=== PATIENT | male | born 1955 | race Caucasian/White ===

== ENCOUNTER → 2017-06-21 | Outpatient (CLI) | payer BC ==
[2015-02-05 09:30] VITALS: BP 154/95
--- NOTE | 2017-06-21 11:27 | KCIC ---
Renal ultrasound History:Idiopathic hematuria. Technique: Sonographic imaging of both kidneys. Findings: Aorta: Small infrarenal abdominal aortic aneurysm, measures 4.0 cm AP diameter. Proximal aorta is obscured by bowel gas. Inferior vena cava:Appears patent Right kidney measures 12.8 cm. No evidence of hydronephrosis, shadowing calculus or renal lesion. Left kidney measures 12.0 cm length echogenic reflector measuring about 6 mm identified at the midpole, compatible with a calcification or a nonobstructive calculus. No hydronephrosis.. Urinary bladder: Limited visualization. Patient had voided prior to the scan. Prostate gland is enlarged with an estimated volume of 124 cc. Impression: 1. Small infrarenal abdominal aortic aneurysm measuring 4.0 cm AP diameter. Recommend follow-up ultrasound of the aorta in at least 12 months. Findings discussed by telephone with Cinthya Duarte at the time of this report. 2. Nonobstructive left renal calculus. 3. Prostatomegaly. Electronically signed by: Geraldo Wayne MD (06/21/2017 11:24 AM) [facility]
== END | disposition home or self-care (01) ==
LOC: KCIC US 08:17
PROVIDERS: ATTEND Nurse Practitioner Family
DX: I71.4 Abdominal aortic aneurysm, without rupture (principal); N20.0 Calculus of kidney; N40.0 Benign prostatic hyperplasia without lower urinary tract symptoms; N02.9 Recurrent and persistent hematuria with unspecified morphologic changes
CPT/HCPCS: 76770

== ENCOUNTER → 2019-05-13 | Outpatient (CLI) | payer BC ==
[2015-02-05 09:30] VITALS: BP 154/95
[~2019-05-13] MED LIST: REGADENOSON 0.4 MG/5 ML DISP.SYRIN. IV ONE
--- NOTE | 2019-05-13 11:27 | RAD ---
MR#: [id number] Date of Study: 05/13/2019 Ordering Physician: WILSON SHORT, Referring Physician: WILSON SHORT, Tech: Yvon Scruggs MBA, RDMS, RVT, RDCS, RTR APPROVED REPORT Patient Location : OUT-PATIENT Indications Varicose Veins Greater Saphenous Veins (GSV) Significant venous relux noted in the RIGHT GSV at the following levels : Proximal Thigh, Mid Thigh, Distal Thigh, Proximal Calf, Mid Calf, Distal Calf Significant venous relux noted in the LEFT GSV at the following levels : Superficial Femoral Junction , Proximal Thigh, Mid Thigh, Distal Thigh Lesser Saphenous Veins (LSV) Significant venous reflux is noted in the Bilateral LSV. Findings Bilateral pires scale images of the greater and lesser saphenous veins are grossly within normal limit s. The left great saphenous vein below the knee appears to been previously ablated. On the left the great saphenous vein measures approximately 5.6 mm in greatest dimension with a maxim um reflux time of 3.2 seconds. The right great saphenous vein has a maximum dimension of 3.9 mm with a reflux time of 3.4 seconds. The left great saphenous vein measures approximately 2 mm with a maximum reflux time of 1.8 seconds. The right great saphenous vein measures approximately 3 mm with a maximum reflux time of 2.9 seconds. Critical Notification Critical Value: No <Conclusion> Positive for reflux in the bilateral greater and lesser saphenous veins as noted above. Signed by : David Pichardo, Electronically Approved : 05/13/2019 11:26:59
--- NOTE | 2019-05-13 11:52 | RAD ---
MR#: [id number] Date of Study: 05/13/2019 Ordering Physician: WILSON SHORT, Referring Physician: WILSON SHORT, Tech: Yvon Scruggs MBA, RDMS, RVT, RDCS, RTR APPROVED REPORT Patient Location: OUT-PATIENT Indications Rest Pain:Bilaterally VELOCITY AND DOPPLER WAVEFORM ANALYSIS RIGHT cm/secWaveformSeverity LEFT cm/secWaveform Severity dCFA 57.0BiphasicdCFA 90.0Biphasic Prof Fem Art. 46.0BiphasicProf Fem Art. 69.0Biphasic Fem Art Prox. 159.0BiphasicFem Art Prox. 31.0Biphasic Fem Art Mid. 98.0BiphasicFem Art Mid. Occluded Fem Art Dist. 124.0BiphasicFem Art Dist. Occluded Pop Art(Fossa) 50.0MonophasicPop Art(AK) 20.0Monophasic GOLF BALL MOLDER Prox. 78.0MonophasicPTA Prox. 28.0Monophasic GOLF BALL MOLDER Dist. 62.0MonophasicPTA Dist. 16.0Monophasic Per Art Mid. 36.0MonophasicPer Art Mid. ROBERTO Prox. 129.0TriphasicATA Prox. 36.0Monophasic DPA 41MonophasicDPA 26Monophasic Image Findings Grayscale images of the bilateral lower extremity arterial vessels demonstrate moderate diffuse plaqu e. On the right spectral waveforms of the common femoral, superficial femoral artery suggesting a mild t o moderate disease of approximately less than 50%. The posterior tibial, peroneal and anterior tibial vessels appear to be patent without any significant restriction to flow. There is likely moderate di ffuse disease involving the below-knee vessels. On the left there are normal velocities in the common femoral artery. The mid to distal SFA is occlud ed. Distally there is some reconstitution with collateral flow at the popliteal segment. There is 2 v essel runoff below the knee with no evidence of visualization a flow in the peroneal artery. Monophas ic waveforms with diminished velocities are consistent with more proximal obstruction in the superfic ial femoral artery. Critical Notification Critical Value: No <Conclusion> 1. Probable moderate diffuse disease involving the right lower extremity 2. Occluded left mid to distal superficial femoral artery with diminished flow below the knee. Signed by : David Pichadro, Electronically Approved : 05/13/2019 11:52:33
--- NOTE | 2019-05-13 11:55 | CARD ---
MR#: [id number] Date of Study: 05/13/2019 Ordering Physician: WILSON SHORT, Referring Physician: WILSON SHORT, Tech: Roseanne Tamomar APPROVED REPORT EXAM: Two-dimensional and M-mode echocardiogram with Doppler and color Doppler. Other Information Quality : AverageHR: 67bpm INDICATION Cardiac Disease: CAD Surgery/Intervention CABG: Date: 2011 RISK FACTORS Hypertension Smoking 2D DIMENSIONS RVDd3.6 (2.9-3.5cm)Left Atrium(2D)3.0 (1.6-4.0cm) IVSd1.1 (0.7-1.1cm)Aortic Root(2D)3.7 (2.0-3.7cm) LVDd4.9 (3.9-5.9cm)LVOT Diameter2.1 (1.8-2.4cm) PWd1.3 (0.7-1.1cm)LVDs3.4 (2.5-4.0cm) FS (%) 27.8 %SV54.3 ml LVEF(%)53.9 (>50%) Aortic Valve AoV Peak Bryan.121.2cm/sAoV VTI22.6cm AO Peak GR.5.9mmHgLVOT Peak Bryan.98.6cm/s LVOT VTI 18.64cmAO Mean GR.4mmHg MARII (VMAX)2.80na1LTT (VTI)2.97cm2 AI P 1/2 Hpph207gr Mitral Valve MV E Vhmeffyh59.7cm/sMV DECEL QUTL098vb MV A Tuitwmdd36.5cm/sMV GFP26sp E/A Ratio0.9MVA (PHT)3.52cm2 TDI E/Lateral E'5.0E/Medial E'5.9 Pulmonary Valve PV Peak Gxdgbbwy863.3cm/sPV Peak Grad.6mmHg Tricuspid Valve TR P. Tsuxbqsb070oh/sRAP PWXVBWFY0ctBt TR Peak Gr.83frGlBSCK05tdRj Pulmonary Vein S1 Gnqvgrid46.7cm/sD2 Qodmrqdj38.4cm/s PVa nnjqgeqd506zzru LEFT VENTRICLE The left ventricle is normal size. There is mild to moderate concentric left ventricular hypertrophy. The left ventricular systolic function is normal and the ejection fraction is within normal range. T he Ejection Fraction is 50-55%. There is normal LV segmental wall motion. Transmitral Doppler flow pa ttern is Grade I-abnormal relaxation pattern. RIGHT VENTRICLE The right ventricle is normal size. There is normal right ventricular wall thickness. The right ventr icular systolic function is normal. ATRIA The left atrium size is normal. The right atrium size is normal. The interatrial septum is intact wit h no evidence for an atrial septal defect or patent foramen ovale as noted on 2-D or Doppler imaging. AORTIC VALVE The aortic valve is normal in structure and function. Doppler and Color Flow revealed trace aortic re gurgitation. There is no significant aortic valvular stenosis. MITRAL VALVE The mitral valve is normal in structure and function. There is no evidence of mitral valve prolapse. There is no mitral valve stenosis. Doppler and Color Flow revealed no mitral valve regurgitation note d. TRICUSPID VALVE The tricuspid valve is normal in structure and function. Doppler and Color Flow revealed no tricuspid valve regurgitation noted. There is no tricuspid valve stenosis. PULMONIC VALVE The pulmonic valve is not well visualized. Doppler and Color Flow revealed no pulmonic valvular regur gitation. GREAT VESSELS The aortic root is normal in size. The IVC was not visualized. PERICARDIAL EFFUSION There is no pleural effusion. There is no evidence of significant pericardial effusion. Critical Notification Critical Value: No <Conclusion> The left ventricular systolic function is normal and the ejection fraction is within normal range. Th e Ejection Fraction is 50-55%. There is normal LV segmental wall motion. Signed by : David Pichardo, Electronically Approved : 05/13/2019 11:55:25
--- NOTE | 2019-05-13 12:40 | RAD ---
MR#: [id number] Date of Study: 05/13/2019 Ordering Physician: WILSON SHORT, Referring Physician: ATUL LARIOS Tech: JESUS Rocha APPROVED REPORT Test Type: Pharmacological Stress Nurse/Tech: Nay Sun R.N. Test Indications: CAD Cardiac History: Hypertension, CAD, triple bypass, former smoker Medications: See Electronic Medical Record Medical History: See Electronic Medical Record Resting ECG: NSR Resting Heart Rate: 68 bpm Resting Blood Pressure: 138/78mmHg Pretest Chest Pain: No chest pain Nurse/Tech Notes S1S2, lungs sound clear Consent: The procedure was explained to the patient in lay terms. Informed consent was witnessed. Jamaal eout was entered into [employer]. History and Stress Test performed by Nay Sun R.N. Pharm. Details Pharmacologic stress testing was performed using 0.4mg per 5ml of regadenoson given intravenously ove r 7-10 seconds. Stress Symptoms Nausea, vomiting POST EXERCISE Reason for Termination: Infusion complete Target HR: 132 Max HR: 141 bpm Max Blood Pressure: 174/95mmHg Blood Pressure response to exercise: Normal blood pressure response during stress. Chest Pain: No. Arrhythmia: No. ST Change: No. INTERPRETATION Stress EKG Conclusion: Baseline EKG showed sinus rhythm. No ischemic changes at peak stress. No arr hythmias. Imaging Protocol IMAGE PROTOCOL: Rest Tc-99m/stress Tc-99m 1 day Rest: Stress: Viability: Radiopharm.Tc99m WgnfpdqllHi59x Sestamibi Zeii65iLm 33mCi Duration 15min. 10min. Img Date 05/13/2019 05/13/2019 Inj-Img Dvih65gav. 60min. Rest Admin Site:IV - Right AntecubitalAdministrator:RT Dinh (R)(N) Stress Admin Site: IV - Right AntecubitalAdministrator: RT Dinh (R)(N) STRESS DATA End Diast. Vol.109.0mlAv. Heart Rate75.0bpm End Syst. Vol.38.0mlCO Index BSA0.0L/min Myocardial Exth455.0gEject. Sezunuzy92.0% Stress Rates Pk. Fill Rate3.02EDV/secLVtime Pk. Fill 102.75msec Pk. Empty Rate4.52ESV/secLVtime Pk. Ruppy445.69msec 1/3 Pk. Fill2.00EDV/sec Stress Scores Regional WT1.00Summed WT7.00 Regional WM0.00Summed WM5.00 LV Perfusion Scintigraphic images showed fixed inferior wall defect most probably diaphragmatic attenuation artifa ct based on normal wall motion. No other fixed or reversible defects seen. Wall Motion Normal left ventricle systolic function with ejection fraction calculated at 65%. LV Perf. Quant 17 Seg. SSS6.00 17 Seg. SRS10.00 17 Seg. SDS0.00 Stress Defect Extent (% LAD)0.00Rest Defect Extent (% LAD)0.00Rev. Defect Extent (% LAD)0.00 Stress Defect Extent (% LCX) 11.30Rest Defect Extent (% LCX)21.30Rev. Defect Extent (% LCX)0.00 Stress Defect Extent (% RCA)17.80Rest Defect Extent (% RCA)48.90Rev. Defect Extent (% RCA)0.00 Stress Defect Extent (% CHRIS)8.30Rest Defect Extent (% CHRIS)17.40Rev. Defect Extent (% CHRIS)0.00 Conclusion 1. Regadenoson cardioisotope stress test showed diaphragmatic attenuation artifact without any eviden ce of ischemia or infarct. 2. Normal left ventricular systolic function with ejection fraction calculated at 65%. 3. Low risk for cardiac events. Signed by : Wilson Short, Electronically Approved : 05/13/2019 12:40:12
== END | disposition home or self-care (01) ==
LOC: ECHO 08:19
PROVIDERS: ATTEND Internal Medicine Cardiovascular Disease
DX: I74.3 Embolism and thrombosis of arteries of the lower extremities (principal); I83.93 Asymptomatic varicose veins of bilateral lower extremities; I11.9 Hypertensive heart disease without heart failure; I25.10 Atherosclerotic heart disease of native coronary artery without angina pectoris; Z87.891 Personal history of nicotine dependence; Z95.1 Presence of aortocoronary bypass graft
CPT/HCPCS: 78452; 93017; 93306; 93925; 93970; A9500; J2785

== ENCOUNTER 2019-06-03 06:58 | Observation (INO) | payer BC ==
[2019-06-03] VITALS (16 sets, daily range): BP systolic 115–170; BP diastolic 66–87
[~2019-06-03] VITALS: Ht 193 cm; Wt 105.7 kg
[2019-06-03 07:27] LABS: HEMATOCRIT 44.9 % (39.0-53.0); HEMOGLOBIN 15.6 g/dL (13.0-17.5); RED BLOOD COUNT 4.81 x10^6/uL (4.30-5.70); RED CELL DISTRIBUTION WIDTH 14.1 % (11.5-14.5); WHITE BLOOD COUNT 8.8 x10^3/uL (4.0-11.0)
[2019-06-03] MEDS ORDERED: IODIXANOL 320 MG/ML 100 ML VIAL. ONE ×2 (07:35→09:32)
[2019-06-03 07:37] LABS: CALCIUM 8.5 mg/dL (8.5-10.1); GFR 75.2; POTASSIUM 4.5 mmol/L (3.5-5.1)
[2019-06-03] MEDS ORDERED: LIDOCAINE 1% Multi-Dose 20 ML VIAL. ONE (07:41)
[2019-06-03] MEDS ORDERED: MIDAZOLAM HCL/PF 2 MG/2 ML VIAL. ONE ×2 (08:17→09:52)
[2019-06-03] MEDS ORDERED: fentaNYL PF VIAL 100 MCG/2 ML VIAL ONE (08:17)
[2019-06-03] MEDS ORDERED: HEPARIN for IV BOLUS 10,000 UNIT/10 ML VIAL. ONE (08:17)
[2019-06-03] MEDS ORDERED: TAMS0.4C97 PO (08:32)
[2019-06-03] MEDS ORDERED: FINA5TAB4 PO (08:32)
[2019-06-03] MEDS ORDERED: METO-239 PO (08:32)
[2019-06-03] MEDS ORDERED: SIMV20TA3 PO (08:32)
[2019-06-03] MEDS ORDERED: ASPI325T11 PO (08:32)
[2019-06-03] MEDS ORDERED: LOSA-73 PO (08:32)
[2019-06-03] MEDS ORDERED: LIDOCAINE 1% PF 2 ML VIAL. ONE (09:06)
[2019-06-03] MEDS ORDERED: MORPHINE SULFATE 10 MG/ML VIAL. ONE (09:18)
[2019-06-03] MEDS ORDERED: NITROGLYCERIN 200 MCG/2 ML SYRINGE FOR CATH/VASC LAB. ONE (09:31)
[2019-06-03] MEDS ORDERED: VERAPAMIL 5 MG/2 ML VIAL. ONE (09:31)
[2019-06-03] MEDS ORDERED: diphenhydrAMINE 50 MG/ML VIAL ONE (10:08)
[2019-06-03] MEDS ORDERED: HEPARIN for IV BOLUS 10,000 UNIT/10 ML VIAL. IART ONE (10:15)
[2019-06-03] MEDS ORDERED: VERAPAMIL 5 MG/2 ML VIAL. IART ONE (10:15)
[2019-06-03] MEDS ORDERED: fentaNYL PF VIAL 100 MCG/2 ML VIAL IV ONE ×2 (10:15→11:45)
[2019-06-03] MEDS ORDERED: HEPARIN for IV BOLUS 10,000 UNIT/10 ML VIAL. IV ONE (10:15)
[2019-06-03] MEDS ORDERED: LIDOCAINE 1% Multi-Dose 20 ML VIAL. INJ ONE (10:15)
[2019-06-03] MEDS ORDERED: NITROGLYCERIN 200 MCG/2 ML SYRINGE FOR CATH/VASC LAB. IART ONE ×2 (10:15→11:00)
[2019-06-03] MEDS ORDERED: diphenhydrAMINE 50 MG/ML VIAL IVP ONE (10:15)
[2019-06-03] MEDS ORDERED: IODIXANOL 320 MG/ML 100 ML VIAL. IART ONE (10:15)
[2019-06-03] MEDS ORDERED: MORPHINE SULFATE 10 MG/ML VIAL. IM ONE (10:15)
[2019-06-03] MEDS ORDERED: MIDAZOLAM HCL/PF 2 MG/2 ML VIAL. IV ONE ×2 (10:15→11:45)
[2019-06-03] MEDS ORDERED: CONTRAST GIVEN. MC PRN (10:30)
[2019-06-03] MEDS ORDERED: CLOPIDOGREL BISULFATE 75 MG TABLET ONE (10:46)
[2019-06-03] MEDS ORDERED: MORPHINE SULFATE 10 MG/ML VIAL. IV ONE (11:00)
[2019-06-03] MEDS ORDERED: LIDOCAINE 1% PF 2 ML VIAL. INJ ONE (11:00)
[2019-06-03] MEDS ORDERED: CLOPIDOGREL BISULFATE 75 MG TABLET PO ONE (11:30)
--- NOTE | 2019-06-03 11:30 | NUR ---
The patient, BALBIR GRAY, 63 y/o, M admitted by WILSON SHORT MD, was given written information regarding hospital policies, unit procedures and contact persons. 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 VS stable, pt in SR rate in 60s. Right femoral site soft and no signs of bleeding. Dressing clean, dry, intact. TR band in place on left ankle. No complaints of pain at this time. at bedside. Call light within reach. Will continue to monitor.
--- NOTE | 2019-06-03 11:40 | PDOC ---
MODERATE SEDATION ASSESSMENT RISKS/ALTERNATIVES Risks/Alternatives Risks and alternatives of this type of sedation and procedure discussed with: RISK/ALTERNATIVES: Patient H & P ON CHART H & P H & P on chart and reviewed for co-morbid conditions and appropriate labs. H&P ON CHART: Yes STATUS PREG STATUS ASSESSED: N/A MEDS/ALLERGIES REVIEWED Meds/Allergies Reviewed Medications and Allergies including time and route of recently administered narcotics and sedatives. MEDS/ALLERGIES REVIEWED: Yes ASA RATING ASA RATING: II AIRWAY ASSESSMENT Airway Assessment Airway patency, oral function limitations, presence of caps, crowns, dentures, partials, and ability to extend neck assessed. AIRWAY ASSESSMENT: Yes MALLAMPATI SCORE MALLAMPATI SCORE: II PRE-SEDATION ASSESSMENT PRE-SEDATION ASSESSMENT: Yes WILSON SHORT MD Jun 03, 2019 11:40
[2019-06-03] MEDS ORDERED: MAGNESIUM HYDROXIDE 2,400 MG/30 ML ORAL.SUSP. PO PRN (11:45)
[2019-06-03] MEDS ORDERED: 0.9 % SODIUM CHLORIDE 10 ML DISP.SYRIN. IV PRN (11:45)
[2019-06-03] MEDS ORDERED: NITROGLYCERIN SUBLINGUAL 0.4 MG BOTTLE OF 25. SL PRN (11:45)
--- NOTE | 2019-06-03 11:55 | CARD ---
MR#: [id number] Date of Study: 06/03/2019 Ordering Physician: WILSON JIMENEZ, Referring Physician: WILSON JIMENEZ Tech: RT Daniele (R) APPROVED REPORT Patient StatusIN-PATIENT Case Fitter: Damir Menezes RT (R) Procedure(s) performed: 1. Aortogram with bilateral lower extremity runoff 2. Successful complex CYBER SECURITY SYSTEMS ENGINEER/stent placement to left superficial femoral artery via left pedal/posterio r tibial access Sedation Time: 140 Minutes Fluoro time: 33.1 Minutes Dose: 157.21 Gycm2 Contrast: 205 Visipaque INDICATION FOR PROCEDURE The indication(s) include : Peripheral artery disease with claudication. PROCEDURE NARRATIVE After explaining the risks, benefits and alternative options, informed consent was obtained from michaelle ent. [facility] his right groin was prepped and draped in the usu al fashion. 20 mL of 2% lidocaine was infiltrated into the skin and subcutaneous tissues for local an esthesia. Arterial access was obtained in the right common femoral artery and a 5 Gambian sheath was i nserted. 5 Gambian pigtail catheter was used to perform aortogram with bilateral lower extremity runof f. Contrast injections were performed through the sheath in the right groin for right lower extremity angiography. The aortic bertram was crossed into the left common iliac artery with a 5 Gambian crossov er catheter and left lower extreme immediate angiography was performed. The following findings were n oted. FINDINGS 1. Aneurysmal dilatation of the distal descending aorta without any significant stenosis. 2. No significant stenosis involving bilateral common and external iliac arteries. 3. No significant stenosis involving bilateral common femoral arteries. 4. The right superficial femoral artery showed luminal irregularities without any significant stenos is. The left superficial femoral artery showed long chronic total occlusion involving the proximal an d mid segments with distal reconstitution from collaterals. 5. The popliteal arteries bilaterally did not show any significant stenosis. 6. The anterior tibial, peroneal and posterior tibial arteries and right lower extremity showed shor t 100% occlusions proximally with reconstitution from collaterals and relatively good distal flow. 7. There is three-vessel runoff below the knee left lower extremity. INTERVENTION Since location of the proximal cap of the chronic total occlusion in the left superficial femoral art waldo was not clear, we decided to intervene on this vessel via left pedal/posterior tibial access. The left foot/leg was prepped and draped in the usual fashion. 2 mL of 2% lidocaine was infiltrated into the skin and subcutis tissues for local anesthesia. Arterial access was then obtained under vascular ultrasound guidance and 6 Gambian sheath was inserted. Initial attempts to cross the chronic total oc clusion of left SFA with 0.035 inch Glidewire with backup support from 4 Gambian angled glide catheter were unsuccessful. This was then crossed with a 0.[address] guidewire after several attemp ts. Multiple inflations were then made within the lesions using 4.0 x 1 50 mm followed by 6.0 x 1 50 mm Alcala Lisman balloons. The lesion was then treated successfully with overlapping 6.5 x 1 50 and 6 .0 x 1 50 mm Alcala Supera self-expanding stents. Follow-up angiography showed resolution of the sten oses to 0% with good distal flow. Patient tolerated the procedure well. Hemostasis was achieved using mynx in the right groin and TR band and left posterior tibial artery. There were no immediate compli cations. Conclusion 1. 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 Short 100% manufacturing operations manager shankar occlusions of right PT/AT/peroneal with distal reconstitution from good collaterals as described above 2. Successful complex CYBER SECURITY SYSTEMS ENGINEER/stents placement to the left superficial femoral artery via left posterior tibial access Recommendations 1. Aspirin 81 mg daily 2. Plavix 75 mg daily 3. Vascular risk factor modification including regular exercise regimen Signed by : Wilson Jimenez, Electronically Approved : 06/03/2019 11:55:05
[2019-06-03] MEDS: IV 1/2 NORMAL SALINE 1,000 ML IV SCH ×2 (12:44→20:51)
[2019-06-03] MEDS: TAMSULOSIN 0.4 MG CAP.ER.24H. PO SCH (14:30)
[2019-06-03] MEDS: METOPROLOL SUCC 24HR ER 25 MG TAB.ER.24H. PO SCH (14:30)
[2019-06-03] MEDS: LOSARTAN POTASSIUM 50 MG TABLET. PO SCH (14:30)
[2019-06-03] MEDS: FINASTERIDE 5 MG TABLET. PO SCH (14:30)
[2019-06-03] MEDS ORDERED: ACETAMINOPHEN 325 MG TABLET. PO PRN (15:00)
[2019-06-03] MEDS: ACETAMINOPHEN 325 MG TABLET. PO PRN ×2 (15:12→20:51)
[2019-06-03] MEDS ORDERED: ONDANSETRON PF 4 MG/2 ML VIAL. IV PRN (20:00)
[2019-06-03] MEDS ORDERED: SIMVASTATIN 20 MG TABLET PO SCH (21:00)
[2019-06-04 03:25] VITALS: BP 126/87
[2019-06-04] MEDS: IV 1/2 NORMAL SALINE 1,000 ML IV SCH (06:44)
[2019-06-04 06:59] VITALS: BP 153/85
[2019-06-04 07:31] LABS: CALCIUM 8.4 mg/dL (8.5-10.1); GFR 75.2
[2019-06-04] MEDS: TAMSULOSIN 0.4 MG CAP.ER.24H. PO SCH (09:00)
[2019-06-04] MEDS: METOPROLOL SUCC 24HR ER 25 MG TAB.ER.24H. PO SCH (09:00)
[2019-06-04] MEDS: LOSARTAN POTASSIUM 50 MG TABLET. PO SCH (09:00)
[2019-06-04] MEDS ORDERED: ASPIRIN ENTERIC COATED 325 MG TABLET.DR. PO SCH (09:00)
[2019-06-04] MEDS: FINASTERIDE 5 MG TABLET. PO SCH (09:00)
--- NOTE | 2019-06-04 09:44 | NUR ---
Nursing: Patient's morning medications non-administered. Patient stated he takes his medications before bed. Patient also stated he took his own medications last night.
[2019-06-04 10:30] VITALS: BP 160/78
--- NOTE | 2019-06-04 11:36 | NUR ---
SS following for discharge planning. SS reviewed pt chart. Pt is from home with spouse and is currently on room air. No discharge needs noted at this time. SS will continue to follow for discharge planning.
[2019-06-04] MEDS ORDERED: CLOP75TA PO (12:09)
[2019-06-04] MEDS ORDERED: CLOPIDOGREL BISULFATE 75 MG TABLET PO ONE (12:15)
[2019-06-04] MEDS ORDERED: ASPI-612 PO (12:16)
--- NOTE | 2019-06-04 12:17 | PDOC3 ---
CHRISTIANO MORENO APPLICATION ENGINEER 06/04/19 1217: Discharge Summary Visit Information Date of Admission: Jun 03, 2019 Date of Discharge: Jun 04, 2019 Admitting Diagnosis: PAD with claudication, CAD, HTN Final Diagnosis PAD with claudication, S/P [employer]/stents to LSFA, CAD, HTN Brief Hospital Course Allergies Allergies Coded Allergies Type Severity Reaction Last Updated Verified No Known Drug Allergies 02/05/15 No Vital Signs Vital Signs Date Time Temp Pulse Resp B/P (MAP) Pulse Ox O2 Delivery O2 Flow Rate FiO2 06/04/19 10:30 98.7 70 18 160/78 (105) 98 Room Air 98.7 06/03/19 11:11 2.0 Lab Results Laboratory Tests Test 06/03/19 07:20 06/04/19 06:25 White Blood Count 8.8 x10^3/uL (4.0-11.0) Red Blood Count 4.81 x10^6/uL (4.30-5.70) Hemoglobin 15.6 g/dL (13.0-17.5) Hematocrit 44.9 % (39.0-53.0) Mean Corpuscular Volume 93 fL (79-100) Mean Corpuscular Hemoglobin 33 pg (25-35) Mean Corpuscular Hemoglobin Concent 35 g/dL (31-37) Red Cell Distribution Width 14.1 % (11.5-14.5) Platelet Count 230 x10^3/uL (140-400) Prothrombin Time 12.0 SEC (11.7-14.0) Prothromb Time International Ratio 0.9 (0.8-1.1) Sodium Level 141 mmol/L (136-145) 141 mmol/L (136-145) Potassium Level 4.5 mmol/L (3.5-5.1) 4.0 mmol/L (3.5-5.1) Chloride Level 105 mmol/L (98-107) 104 mmol/L (98-107) Carbon Dioxide Level 26 mmol/L (21-32) 26 mmol/L (21-32) Anion Gap 10 (6-14) 11 (6-14) Blood Urea Nitrogen 20 mg/dL (8-26) 13 mg/dL (8-26) Creatinine 1.0 mg/dL (0.7-1.3) 1.0 mg/dL (0.7-1.3) Estimated GFR (Cockcroft-Gault) 75.2 75.2 Glucose Level 123 mg/dL (70-99) 101 mg/dL (70-99) Calcium Level 8.5 mg/dL (8.5-10.1) 8.4 mg/dL (8.5-10.1) Laboratory Tests Test 06/04/19 06:25 Sodium Level 141 mmol/L (136-145) Potassium Level 4.0 mmol/L (3.5-5.1) Chloride Level 104 mmol/L (98-107) Carbon Dioxide Level 26 mmol/L (21-32) Anion Gap 11 (6-14) Blood Urea Nitrogen 13 mg/dL (8-26) Creatinine 1.0 mg/dL (0.7-1.3) Estimated GFR (Cockcroft-Gault) 75.2 Glucose Level 101 mg/dL (70-99) Calcium Level 8.4 mg/dL (8.5-10.1) Brief Hospital Course Mr schuster is a pleasant 63 yo male admitted for planned femoral runoff due to LE claudications symptoms with severe PAD to LLE. Per imaging his LLE was noted with 100% long chronic total occlusion involving the left superficial femoral artery. Short 100% chronic occlusions of right PT/AT/peroneal with distal reconstitution from good collaterals. Successful complex [employer]/stents placement to the left superficial femoral artery via left posterior tibial access. The arteriotomy site on left ankle and right groin are D/I with no erythema or swelling. Neurovascular status to bilateral LE intact. Tolerated procedure well without complications. He also have multiple leg varicosities which will be addressed as an outpt in June. AOx3, no SOA, no CP. No arrhythmias. Clinically his CAD is stable with recent unremarkable MPI. BP for the most part is controlled. Continue ASA at lower dose and Rx for plavix given. Continue home statin, BB and ARB. HBPM bid for 1 week and to call if beyond parameters. Post cath care instruction provided. Gradual exercise regimen discussed. Discharge Information Condition at Discharge: Stable Follow Up: Months (3) Disposition/Orders: D/C to Home Scheduled Aspirin (Aspirin Ec) 81 Mg Tablet., 1 TAB PO DAILY for PAD for 30 Days, #30 Ref 3 Prescribed by: CHRISTIANO MORENO on 06/04/19 1216 Clopidogrel Bisulfate (Clopidogrel) 75 Mg Tablet, 1 TAB PO DAILY for PAD for 30 Days, #30 Ref 1 Prescribed by: CHRISTIANO MORENO on 06/04/19 1209 Finasteride (Finasteride) 5 Mg Tablet, 1 TAB PO DAILY for urinary retention, #30 Ref 11 (Reported) Entered as Reported by: DIMPLE LOUIS on 06/03/19831 Last Taken: Unknown Dose on 06/02/19 Last Action: Continued on 06/03/191399 by CARLOS SHOEMAKER RN Losartan Potassium (Losartan Potassium) 50 Mg Tablet, 50 MG PO DAILY for HYPERTENSION, (Reported) Entered as Reported by: DIMPLE LOUIS on 06/03/19831 Last Taken: Unknown Dose on 06/02/19 Last Action: Continued on 06/03/191399 by CARLOS SHOEMAKER RN Metoprolol Succinate (Metoprolol Succinate ( Xl )) 25 Mg Tab.er.24h, 25 MG PO DAILY for FOR HYPERTENSION, #30 Ref 0 (Reported) Entered as Reported by: DIMPLE LOUIS on 06/03/19831 Last Taken: 50mg on 06/02/19 Last Action: Continued on 06/03/191399 by CARLOS SHOEMAKER RN Simvastatin (Simvastatin) 20 Mg Tablet, 1 TAB PO QHS for cholesterol control, #30 Ref 5 (Reported) Entered as Reported by: DIMPLE LOUIS on 06/03/19831 Last Taken: Unknown Dose on 06/02/19 Last Action: Continued on 06/03/191399 by CARLOS SHOEMAKER RN Tamsulosin Hcl (Flomax) 0.4 Mg Cap.er.24h, 1 CAP PO DAILY for bph, #30 Ref 11 (Reported) Entered as Reported by: DIMPLE LOUIS on 06/03/19831 Last Taken: Unknown Dose on 06/02/19 Last Action: Continued on 06/03/191399 by CARLOS SHOEMAKER RN Discontinued Medications Aspirin (Aspirin Ec) 325 Mg Tablet.dr, 1 TAB PO DAILY for heart health, #30 Ref 5 (Reported) Entered as Reported by: DIMPLE LOUIS on 06/03/19831 Last Taken: Unknown Dose on 06/02/19 Last Action: Continued on 06/03/191399 by CARLOS SHOEMAKER RN Patient Instructions Patient Instructions GENERAL INSTRUCTIONS: 1. Your dressing should be removed prior to leaving the hospital. 2. It is OK to shower the day after your procedure. 3. If you received stents, be sure to carry your stent information card with you in your wallet/purse at all times. 4. Call the office immediately at [phone] if you notice any fever or if there is redness, worsening tenderness/pain, increased bruising, or drainage from the puncture site. 5. Should you have bleeding from the site, lie down immediately & put pressure on the site. The pressure should be hard enough to stop the bleeding. Have the nearest person call 911. DO NOT try to drive to the ER with active bleeding. 6. If you notice a change in color, coolness to touch, or loss of feeling in the affected extremity, come to the emergency room. Please have someone drive you or call 911 if no one is available. DO NOT drive yourself. 7. If you normally take glucophage (metformin), please do not take this medicine for 48 hours following your procedure. 8. DO NOT STOP TAKING YOUR PLAVIX OR ASPIRIN UNLESS IT IS CLEARED BY A VETERINARY TECHNICIAN OF YOUR DINING ROOM CASHIER AT OUR OFFICE. 9. QUIT SMOKING: the [place] [employer], [employer] [employer], & [employer] [employer] have cessation resources available on their websites 10. Please have someone available to drive you home from the hospital as you may be limited by sedation medications given during the procedure. Femoral access: 1. Do no lifting, pushing, pulling, bending, stooping, or recurrent stair climbing for 3 days following your procedure. 2. Once past the first 3 days, do not do any HEAVY exertion or lifting for one week following the procedure. No gym workouts, running, lifting greater than a gallon of milk, etc 3. Do not submerge in bath or pool for one week. OK to drive 3 days following your procedure, but if going long distance, do not go alone & take hourly breaks to get out of car and walk around. Call the office at [phone] for any questions or concerns. WILSON SHORT MD 06/04/19 7561: Discharge Summary Brief Hospital Course Brief Hospital Course Patient seen and examined. Agree with BELLPERSON's assessment and plan. Patient underwent successful complex [employer]/stent placement to long chronic total occlusion of left SFA via pedal access. His groin and pedal access site looked good at the time of discharge. Continue current medications including Plavix and follow-up with our office as previously scheduled. CHRISTIANO MORENO APRN Jun 04, 2019 12:17 WILSON SHORT MD Jun 04, 2019 17:13
--- NOTE | 2019-06-04 13:44 | NUR ---
Discharge: Teaching verbal and written. Reviewed medications, follow-up, post procedure precautions, HTN, cholesterol, diet, ect. Patient and verbalized understanding. Written prescription for Plavix given to patient. IV removed without complications, catheter tip in-tact. All belongings with patient. Patient assisted off of unit via wheelchair accompanied by and SUPERINTENDENT [employer] FI[employer] DRILLING
[2019-06-05] MEDS ORDERED: CLOPIDOGREL BISULFATE 75 MG TABLET PO SCH (08:00)
== END 2019-06-04 13:50 | disposition home or self-care (01) ==
LOC: CCL 06:58 → 2 SOUTH 10:35
PROVIDERS: ADMIT Internal Medicine Cardiovascular Disease; ATTEND Internal Medicine Cardiovascular Disease
DX: I25.10 Atherosclerotic heart disease of native coronary artery without angina pectoris (principal); I10 Essential (primary) hypertension; I73.9 Peripheral vascular disease, unspecified; I86.8 Varicose veins of other specified sites; I71.4 Abdominal aortic aneurysm, without rupture; E78.5 Hyperlipidemia, unspecified; K21.9 Gastro-esophageal reflux disease without esophagitis; I70.202 Unspecified atherosclerosis of native arteries of extremities, left leg; I83.90 Asymptomatic varicose veins of unspecified lower extremity
CPT/HCPCS: 36415; 37226; 75630; 76937; 80048; 85027; 85610; 96374; 96375; C1713; C1725; C1769; C1876; C1892; C1894; G0269; G0378; G0379; J1200; J1644; J2250; J2270; J2405; J3010; J3490; Q9967; 99152; 99153

== ENCOUNTER → 2019-07-02 | Outpatient (CLI) | payer BC ==
[2019-06-04 10:30] VITALS: BP 160/78
[~2019-07-02] MED LIST changes: +ASPI-612 PO; +ASPI325T11 PO; +CLOP75TA PO; +FINA5TAB4 PO; +LOSA-73 PO; +METO-239 PO; -REGADENOSON 0.4 MG/5 ML DISP.SYRIN. IV ONE; +SIMV20TA18 PO; +TAMS0.4C97 PO
--- NOTE | 2019-07-02 16:06 | RAD ---
MR#: [id number] Date of Study: 07/02/2019 Ordering Physician: WILSON SHORT, Referring Physician: WILSON SHORT, Tech: Yvon Scruggs MBA, RDMS, RVT, RDCS, RTR APPROVED REPORT Bilateral Lower Extremity Venous Study for DVT Patient Location: OUT-PATIENT Indications s/p b/l gsv venaseal Vein Imaging (Right) CFV (R): Compressible SFJ (R): Compressible FEM (R): Compressible POP (R): Compressible DFV (R): Compressible PTV (R): Spontaneous GSV (R): Absent Flow Peroneals (R): Spontaneous Vein Imaging (Left) CFV (L): Compressible SFJ (L): Compressible FEM (L): Compressible POP (L): Compressible DFV (L): Compressible PTV (L): Spontaneous GSV (L): Absent Flow Peroneals (L): Spontaneous Doppler Evaluation (Right) CFV (R): Spontaneous POP (R):Spontaneous Doppler Evaluation (Left) CFV (L):Spontaneous POP (L):Spontaneous Findings The bilateral lower extremity deep veins were evaluated for thrombus with color Doppler, spectral and grayscale images. On the right the grayscale images of the common femoral, superficial femoral and popliteal veins do n ot demonstrate any evidence of thrombus and these veins appear to be compressible. The below-knee vei ns were not well visualized but grossly appear to be compressible. Spectral imaging and color Doppler do not reveal any evidence of obstruction to flow with normal respirophasic variation above the knee . Below the knee there is spontaneous flow noted. On the left, the grayscale images of the common femoral, superficial femoral and popliteal veins do n ot demonstrate any evidence of thrombus and these veins appear to be compressible. The below-knee vei ns again were not well visualized but grossly appear to be compressible. Spectral imaging and color D oppler do not reveal any evidence of obstruction to flow with normal respirophasic variation above th e knee. The below-knee veins demonstrate spontaneous flow. Critical Notification Critical Value: No <Conclusion> Negative for DVT Successful bilateral GSV ablation Signed by : David Pichardo, Electronically Approved : 07/02/2019 16:05:34
== END | disposition home or self-care (01) ==
LOC: US 11:57
PROVIDERS: ATTEND Internal Medicine Cardiovascular Disease
DX: I87.2 Venous insufficiency (chronic) (peripheral) (principal)
CPT/HCPCS: 93970

== ENCOUNTER → 2019-07-08 | Outpatient (CLI) | payer BC ==
--- NOTE | 2019-07-08 13:53 | CARD ---
MR#: [id number] Date of Study: 07/08/2019 Ordering Physician: WILSON JIMENEZ, Referring Physician: WILSON JIMENEZ, Tech: Roseanne Rios RVT; Floyd VALDEZ APPROVED REPORT Patient StatusOUT-PATIENT Order Processor: Roseanne Rios RVT; Floyd SHELL;VIVIANA Procedure(s) performed: Endovenous Vena Seal ablation of the Right lesser saphenous vein INDICATION FOR PROCEDURE The indication(s) include : Symptomatic Chronic Venous Insufficiency with Varicose Veins, lower extre mity pain and edema. PROCEDURE NARRATIVE After explaining the risks, benefits and alternative options, informed consent was obtained from michaelle ent. Patient was brought to the procedure suite and duplex ultrasound was used to map out the insuffi cient saphenous vein. The access site was determined and marked on the overlying skin. The depth and diameter of the vein (s) to be treated was documented. The patient was placed prone on the procedure table and the leg was prepped and draped using sterile technique. Ultrasound guidance was again used to localize the access site. 1% lidocaine was injected into the sk in and subcutaneous tissues for local anesthesia. Using ultrasound guidance, access was obtained in t he saphenous vein with a 19-gauge thin-walled needle followed by introduction of a short guidewire. T he intraluminal location was confirmed with ultrasound and a 7 Greek 7 cm sheath was inserted into t he vein. A 0.035 inch guidewire from the Venaseal kit was then introduced and positioned at the saphe nopopliteal junction using ultrasound guidance. The 80 cm 7 Greek introducer sheath/dilator was posi tioned 5 cm from the saphenofemoral junction. The guidewire and dilator were removed and the remainin g sheath was flushed with sterile saline, with the syringe remaining in place prior to the next steps . The Cyanoacrylate adhesive was loaded into a 3 cc syringe that was then attached to the 5F delivery c athter and loaded on to the Dispenser gun.The catheter was primed precisely and this 'assembly' was i ntroduced through the 7 Greek sheath and positioned 5 cm caudal to the saphenopopliteal junction und er ultrasound guidance. While applying compression cephalad to the cathter tip with the ultrasound tr ansducer, 0.10 cc of the VenaSeal adhesive was delivered into the vein by pulling the trigger of the dispenser gun. The catheter was pulled back 1 cm and another 0.10 cc of the adhesive was delivered fo llowing which the catheter was pulled back 3 cm. Compression was applied over the vein for 3 minutes. The catheter tip position was confirmed again using the ultrasound, 0.10 cc Venaseal adhesive delive red, catheter pulled back 3 cm and compression applied for 30 seconds. These steps were repeated to treat the entire length of the incompetent vein. Following the last injection and compression sequence, the catheter and introducer sheath were pulled out from the access site. Hemostasis was achieved with manual compression and an adhesive bandage wa s applied to the incision. Ultrasound confirmed complete coaptation and closure of the treated segmen ts of the lesser saphenous vein, and the absence of any DVT at the saphenopopliteal junction. Treated length was 29 cm. The drapes were removed and the patient cleaned and prepared for discharge. Patient tolerated the pro cedure well. There were no immediate complications. Postop ultrasound check scheduled for 48-72 hours and the patient was given written postop instructions. Signed by : Wilson Jimenez, Electronically Approved : 07/08/2019 13:52:48
== END ==
LOC: VNUS 12:30
PROVIDERS: ATTEND Internal Medicine Cardiovascular Disease
DX: I87.321 Chronic venous hypertension (idiopathic) with inflammation of right lower extremity (principal)
CPT/HCPCS: 36482